=== PATIENT | male | born 1975 | race Two or more races ===

== ENCOUNTER 2020-02-02 15:40 | Emergency (ER) | payer BC, OTHER ==
[~2020-02-02] VITALS: Ht 170.2 cm; Wt 74.8 kg
[2020-02-02 18:30] VITALS: BP 125/87
[2020-02-02] MEDS ORDERED: TETANUS-DIPTH-ACEL PERTUSSIS 0.5ML SYR Tdap IM ONE (18:30)
[2020-02-02] MEDS ORDERED: cefTRIAXone SOD 1,000 MG VL IM ONE (18:30)
[2020-02-02] MEDS ORDERED: traMADol HCL 50 MG TAB PO ONE (18:30)
== END 2020-02-02 18:16 | disposition home or self-care (01) ==
LOC: ER 15:40
DX: S61.452A Open bite of left hand, initial encounter (principal); W54.0XXA Bitten by dog, initial encounter; Y93.89 Activity, other specified; Y92.89 Other specified places as the place of occurrence of the external cause; Y99.8 Other external cause status
CPT/HCPCS: 90471; 90715; 96372; 99284; J0696